=== PATIENT | male | born 1950 | race Two or more races ===

== ENCOUNTER 2017-07-11 20:29 | Emergency (ER) | payer OTHER, MEDICAID ==
[~2017-07-11] VITALS: Ht 170.2 cm; Wt 72.6 kg
[~2017-07-11 20:29] MED LIST: diphenhdrAMINE HCL 50 MG/1 ML VL ONE; methylPREDNISolone SOD SUCC 125 MG/2 ML VL ONE
[2017-07-11 20:40] VITALS: BP 155/102
[2017-07-11] MEDS ORDERED: diphenhdrAMINE HCL 50 MG/1 ML VL IV ONE (20:45)
[2017-07-11] MEDS ORDERED: methylPREDNISolone SOD SUCC 125 MG/2 ML VL IV ONE (20:45)
== END 2017-07-11 21:25 | disposition left against medical advice (07) ==
LOC: EDBD → ER 20:41
DX: T78.40XA Allergy, unspecified, initial encounter (principal); Z53.21 Procedure and treatment not carried out due to patient leaving prior to being seen by health care provider
CPT/HCPCS: 96374; 96375; J1200; J2930

== ENCOUNTER 2017-07-13 09:41 | Emergency (ER) | payer OTHER, MEDICAID ==
[~2017-07-13] VITALS: Ht 177.8 cm; Wt 65.8 kg
[2017-07-13 10:22] VITALS: BP 143/91
[2017-07-13] MEDS ORDERED: methylPREDNISolone SOD SUCC 125 MG/2 ML VL IV ONE (11:00)
[2017-07-13] MEDS ORDERED: diphenhdrAMINE HCL 50 MG/1 ML VL IV ONE (11:00)
[2017-07-13] MEDS ORDERED: EPINEPHrine HCL 1 MG/1 ML AMP SC ONE (11:30)
== END 2017-07-13 11:42 | disposition home or self-care (01) ==
LOC: ER 09:41 → EDBD 09:41 → ER 11:42
DX: T78.40XA Allergy, unspecified, initial encounter (principal); I10 Essential (primary) hypertension; F17.210 Nicotine dependence, cigarettes, uncomplicated
CPT/HCPCS: 96372; 96374; 96375; 99284; J0171; J1200; J2930